=== PATIENT | male | born 1980 | race Caucasian/White ===

== ENCOUNTER 2020-11-06 01:36 | Emergency (ER) | payer MEDICAID ==
[~2020-11-06] VITALS: Ht 185.4 cm; Wt 98.3 kg
[2020-11-06 01:52] VITALS: BP 129/82
== END 2020-11-06 02:59 | disposition home or self-care (01) ==
LOC: ER 01:37
DX: B07.0 Plantar wart (principal); M79.672 Pain in left foot; M79.671 Pain in right foot
CPT/HCPCS: 99282

== ENCOUNTER 2021-03-07 19:15 | Emergency (ER) | payer MEDICAID ==
[~2021-03-07] VITALS: Ht 185.4 cm; Wt 134.1 kg
[2021-03-07 21:25] VITALS: BP 131/88
== END 2021-03-07 22:14 | disposition home or self-care (01) ==
LOC: ER 19:16
DX: B34.9 Viral infection, unspecified (principal); R42 Dizziness and giddiness
CPT/HCPCS: 99281